=== PATIENT | female | born 1980 | race Caucasian/White ===

== ENCOUNTER 2024-06-02 19:14 | Emergency (ER) | payer MEDICAID, MEDICARE ==
[2024-06-02] MEDS: Diphtheria,Pertussis(Acell),Tetanus Vaccine 0.5 ML Syringe IM ONE (19:47)
[2024-06-02] MEDS: Cephalexin 500 MG Cap PO ONE (19:47)
== END 2024-06-02 19:56 | disposition home or self-care (01) ==
LOC: FB.ED 19:14
DX: S91.331A Puncture wound without foreign body, right foot, initial encounter (principal); L03.115 Cellulitis of right lower limb; Z23 Encounter for immunization; Z88.0 Allergy status to penicillin; X58.XXXA Exposure to other specified factors, initial encounter
CPT/HCPCS: 90471; 90715; 99283; A9270